=== PATIENT | male | born 1965 | race Caucasian/White ===

== ENCOUNTER 2021-10-01 11:40 | Emergency (ER) | payer BC ==
[2021-10-01 12:25] LABS: HEMOGLOBIN 15.4 gm/dl (14.0-17.5); RED BLOOD COUNT 5.29 M/UL (4.20-5.50); WHITE BLOOD COUNT 7.3 K/UL (4.5-11.0)
[2021-10-01] MEDS ORDERED: OMNICEF 300 MG300 MG PO (17:08)
== END 2021-10-01 17:44 | disposition home or self-care (01) ==
LOC: ER1 11:40
PROVIDERS: Emergency Medicine
DX: N17.9 Acute kidney failure, unspecified (principal); N28.89 Other specified disorders of kidney and ureter
CPT/HCPCS: 71045; 80053; 81001; 83690; 85025; 96374; 99284; J0696; J7030; Q9967